=== PATIENT | female | born 2000 | race Two or more races ===

== ENCOUNTER 2018-11-17 20:38 | Emergency (ER) | payer SELFPAY ==
[~2018-11-17] VITALS: Ht 162.6 cm; Wt 100.0 kg
[2018-11-17 20:40] VITALS: BP 117/65
== END 2018-11-18 00:57 | disposition left against medical advice (07) ==
LOC: ER 20:38
DX: Z53.21 Procedure and treatment not carried out due to patient leaving prior to being seen by health care provider (principal); I10 Essential (primary) hypertension